=== PATIENT | female | born 1935 | race Caucasian/White ===

== ENCOUNTER 2016-10-29 20:42 | Observation (INO) | payer OTHER ==
--- NOTE | 2016-10-29 21:19 | PDOC ---
History of Present Illness - General History Source: Patient Exam Limitations: No Limitations <Ca Sewell - Last Filed: 10/29/16 23:25> <Ishmael Naidu - Last Filed: 10/30/16 16:12> - General Chief Complaint: Nausea/Vomiting Stated Complaint: FAINTING Time Seen by Provider: 10/29/16 21:18 - History of Present Illness Initial Comments: The patient is an 81 yo F with a past medical history significant for HTN and DM who presents with nausea, vomiting and syncope at approximately 8pm tonight. The patient states that a few hours ago she was feeling fine, then felt nauseus was vomiting and then fainted. She notes that her symptoms were sudden onset and have since resolved. She syncopized for a few seconds and was seated at the time. There was no head trauma. As per patient's family, EMS noted a decreased BP. The patient states she was eating and drinking normally today. The patient states the vomiting began at 8 pm. The patient states her vomit was brown in color without any blood and was not black appearing. The patient denies chest pain, sob, and palpitations. The patient denies fevers, chills and cough. She denies blurry vision vision changes, numbness/tingling/ weakness. She denies diarrhea and abdominal pain. The patients family notes the patient vomited and syncopized 1 year ago and was [place] the city but had a negative workup and was discharged. No new medications. (Ca Sewell) Past History <Ca Sewell - Last Filed: 10/29/16 23:25> - Past Medical History Diabetes: Yes (diet controlled) HTN: Yes Hypercholesterolemia: Yes Thyroid Disease: Yes (hypothyroid) - Immunization History Immunization Up to Date: Yes - Psycho/Social/Smoking Cessation Hx Anxiety: No Suicidal Ideation: No Smoking History: Never smoked Have you smoked in the past 12 months: No Information on smoking cessation initiated: No Hx Alcohol Use: No Drug/Substance Use Hx: No Substance Use Type: None <Beka Naiduan - Last Filed: 10/30/16 16:12> - Past Medical History Allergies/Adverse Reactions: Allergies Allergy/AdvReac Type Severity Reaction Status Date / Time No Known Allergies Allergy Verified 10/29/16 21:13 Home Medications: Ambulatory Orders Levothyroxine [Synthroid -] 88 mcg PO DAILY 10/30/16 Metformin HCl [Glucophage -] 500 mg PO DAILY 10/30/16 Pravastatin Sodium 20 mg PO HS 10/30/16 Ramipril 5 mg PO DAILY 10/30/16 Review of Systems - Review of Systems Able to Perform ROS?: Yes <Ca Sewell - Last Filed: 10/29/16 23:25> <Ishmael Naidu - Last Filed: 10/30/16 16:12> - Review of Systems Comments:: Constitutional - Pt denies Fever, Chills, weakness, HEENT: denies vision changes, sore throat Respiratory: Denies cough, sob, hemoptysis Cardiac: denies chest pain, palpitations, light headedness, leg swelling Abd/GI: +nausea, vomiting. denies abd pain, blood per rectum, melena, diarrhea : denies dysuria, frequency, discharge Musculskelatal - denies back pain, joint swelling skin - denies bruising, erythema, rash neurological: +syncope. denies headache, numbness, focal weakness, tingling, ataxia, weakness hematologic: denies anemia, easy bruising, easy bleeding (Ca Sewell) *Physical Exam <Ca Sewell - Last Filed: 10/29/16 23:25> <Ishmael Naidu - Last Filed: 10/30/16 16:12> - Vital Signs Last Vital Signs Temp Pulse Resp BP Pulse Ox 97.5 F L 77 18 161/80 97 10/30/16 12:00 10/30/16 14:34 10/30/16 14:34 10/30/16 14:34 10/30/16 14:34 - Physical Exam Comments: GENERAL: The patient is awake, alert, and fully oriented, Nontoxic - in no acute distress. HEAD: Normocephalic, atraumatic. EYES: extraocular movements intact, sclera anicteric, conjunctiva clear. ENT: Normal voice, Moist mucous membranes. NECK: Normal range of motion, supple without lymphadenopathy, JVD, or masses. LUNGS: Breath sounds equal, clear to auscultation bilaterally. No wheezes, no crackles, no rales. HEART: Regular rate and rhythm, normal S1 and S2 without murmur, rub or gallop. ABDOMEN: Soft, nontender, normoactive bowel sounds. No guarding, no rebound. No masses. EXTREMITIES: Normal range of motion, no edema. No clubbing or cyanosis. No cords, erythema, or tenderness. NEUROLOGICAL: No facial assymetry, Normal speech, normal gait. PSYCH: Normal mood, normal affect. SKIN: Warm, Dry, normal turgor, no rashes or lesions noted. (Ca Sewell) Heart Score/ECG Review <Ca Sewell - Last Filed: 10/29/16 23:25> <Ishmael Naidu - Last Filed: 10/30/16 16:12> - ECG Impressions Comment:: 10/30/16 01:51 Twelve-lead EKG was performed and reviewed by me. There is normal sinus rhythm with a normal rate. Rate of 68 diffuse T wave flattening (Ishmael Naidu) ED Treatment Course - LABORATORY CBC & Chemistry Diagram: 10/29/16 22:25 <Ca Sewell - Last Filed: 10/29/16 23:25> - LABORATORY CBC & Chemistry Diagram: 10/29/16 23:44 10/29/16 23:44 <Ishmael Naidu - Last Filed: 10/30/16 16:12> - ADDITIONAL ORDERS Additional order review: 10/29/16 23:44 RBC 4.49 MCV 84.2 MCHC 33.8 RDW 15.3 MPV 9.9 Neutrophils % 87.1 H Lymphocytes % 8.6 Monocytes % 3.8 Eosinophils % 0.1 Basophils % 0.4 - RADIOLOGY Radiology Studies Ordered: Category Date Time Status CHEST X-RAY PORTABLE* [RAD] Stat Radiology 10/29/16 22:06 Completed - Medications Given in the ED: ED Medications Discontinued Medications Generic Name Dose Route Start Last Admin Trade Name Freq PRN Reason Stop Dose Admin Sodium Chloride 500 mls @ 500 mls/hr 10/29/16 22:26 10/29/16 22:31 Normal Saline - IV 10/29/16 23:25 500 mls/hr ASDIR STA Administration Medical Decision Making <Ca Sewell - Last Filed: 10/29/16 23:25> <Ishmael Naidu - Last Filed: 10/30/16 16:12> - Medical Decision Making 10/29/16 21:54 81y F hx of DM, HTN, HL, thyroid disease presents with syncope. Pt states she started having 8pm, sh estarted feeling very nauseus, eventually she was lightheaded and syncopized for several seconds. Event was witnessed, no tonic/ clonic activity nor postictal period. Pt denies palpitations, chets pain, shortness of breath, vision changes, numbness/tingling/weakness, diarrhea, dysurai, fever/chills, cough. pt staes she is curretnly feeling fine and dnies nay complaints. per family, EMS noted her BP was very low. pt notes this occurred last year, she was admitted to another hospital last year and worked up an dwas negative. no known cardiac history pt on spice fumigator currently will r/o acs, anemia, metabolic dernagement if neg, will likely need observation to r/o arrythemia 10/30/16 01:50 pts blood work reviewed noted for leukocytosis to 20 no finectious complaints cxr clear pt is awaiting UA will observe in tele for arrythmia case dw dr. grey agreed with tele observation under dr. puckett service Case discussed in detail with admitting physician including history, physical exam and ancillary studies. Admitting physician has assumed care for the patient, will follow all pending diagnostics and will complete the evaluation and treatment. (Ishmael Naidu) *DC/Admit/Observation/Transfer <Ca Sewell - Last Filed: 10/29/16 23:25> - Discharge Dispostion Admit: Yes <Ishmael Naidu - Last Filed: 10/30/16 16:12> Diagnosis at time of Disposition: Syncope Qualifiers: Syncope type: unspecified Qualified Code(s): R55 - Syncope and collapse Leukocytosis Qualifiers: Leukocytosis type: unspecified Qualified Code(s): D72.829 - Elevated white blood cell count, unspecified - Referrals - Attestations Scribe Attestion: Documentation prepared by Ca Sewell, acting as medical engineer for Ishmael Naidu MD, /DO. (Ca Sewell)
[2016-10-29] MEDS ORDERED: SODIUM CHLORIDE 500 ML IV STA (22:26)
[2016-10-29 23:49] LABS: BASOPHIL 0.4 % (0-2.0); EOSINOPHIL 0.1 % (0-4.5); MCH 28.4 pg (25.7-33.7); MCHC 33.8 g/dl (32.0-36.0); MEAN CELL VOLUME 84.2 fl (80-96); MEAN PLT VOLUME 9.9 fl (7.5-11.1); NEUTROPHILS 87.1 % (42.8-82.8); PLATELET COUNT 182 K/MM3 (134-434); RDW 15.3 % (11.6-15.6)
[2016-10-30 01:00] LABS: ALBUMIN 3.5 g/dl (3.4-5.0); ANION GAP 9 (8-16); CALCIUM 8.9 mg/dL (8.5-10.1); CO2 27 mmol/L (21-32); GLUCOSE,RANDOM 158 mg/dL (74-106)
[2016-10-30 01:06] LABS: ALK PHOS 70 U/L (45-117); BILIRUBIN,TOTAL 0.6 mg/dL (0.2-1.0); CPK 50 IU/L (26-192); SGOT/AST 17 U/L (15-37); SGPT/ALT 13 U/L (12-78); TOT PROT 6.9 g/dl (6.4-8.2); TROPONIN I < 0.02 ng/ml (0.00-0.05)
--- NOTE | 2016-10-30 03:58 | HP ---
CHIEF COMPLAINT: syncope PCP: [place] HISTORY OF PRESENT ILLNESS: 81 yr old woman with HTN, NIDDMII, hypothyroidism BIBEMS due to one episode of sudden syncope post-emesis this afternoon around 8pm. she recalls feeling full after dinner and going to lay down. she felt nauseous and vomiting non-bloody non-bilious food over herself and the side of the bed. she then fainted and remembers waking up in the hospital. says she was feeling well all day, spent the day in the house watching TV. Dinner consisted of rice and meat. she lives with the daughter who had the same dinner without symptoms. denies chest pain, palpitations, headache, lightheadedness, abdominal pain, dysuria, fever, diarrhea, sick contacts, cough, vision changes, sob. As per ED record, EMS noted a decreased BP on site, family notes previous episode one year ago, work-up for similar syncope episode was negative for CVA/ AR. ER course was notable for: (1) EKG with diffuse t-wave flattening (2) cxy (3) Recent Travel: none PAST MEDICAL HISTORY: HTN NIDDM II hypothyroidism PAST SURGICAL HISTORY: denies Social History: Smoking: denies Alcohol: denies Drugs: denies Family History: Allergies No Known Allergies Allergy (Verified 10/29/16 21:13) HOME MEDICATIONS: Home Medications Medication Instructions Recorded Levothyroxine [Synthroid -] 25 mcg PO DAILY 10/29/16 REVIEW OF SYSTEMS CONSTITUTIONAL: Absent: fever, chills, diaphoresis, generalized weakness, malaise, loss of appetite, weight change HEENT: Absent: rhinorrhea, nasal congestion, throat pain, throat swelling, difficulty swallowing, mouth swelling, ear pain, eye pain, visual changes CARDIOVASCULAR: Absent: chest pain, syncope, palpitations, irregular heart rate, lightheadedness , peripheral edema RESPIRATORY: Absent: cough, shortness of breath, dyspnea with exertion, orthopnea, wheezing, stridor, hemoptysis GASTROINTESTINAL: Present: vomiting Absent: abdominal pain, abdominal distension, nausea, diarrhea, constipation, melena, hematochezia GENITOURINARY: Absent: dysuria, frequency, urgency, hesitancy, hematuria, flank pain, genital pain MUSCULOSKELETAL: Absent: myalgia, arthralgia, joint swelling, back pain, neck pain SKIN: Absent: rash, itching, pallor HEMATOLOGIC/IMMUNOLOGIC: Absent: easy bleeding, easy bruising, lymphadenopathy, frequent infections ENDOCRINE: Absent: unexplained weight gain, unexplained weight loss, heat intolerance, cold intolerance NEUROLOGIC: Absent: headache, focal weakness or paresthesias, dizziness, unsteady gait, seizure, mental status changes, bladder or bowel incontinence PSYCHIATRIC: Absent: anxiety, depression, suicidal or homicidal ideation, hallucinations. PHYSICAL EXAMINATION GENERAL: Awake, alert, and oriented to person/place/date,hospital(didn't know the name but knew this was a hospital) in no acute distress. HEAD: Normal with no signs of trauma. EYES: Pupils equal, round and reactive to light, extraocular movements intact, sclera anicteric, conjunctiva clear. No lid lag. EARS, NOSE, THROAT: Ears normal, nares patent, oropharynx clear without exudates. Moist mucous membranes. NECK: Normal range of motion, supple without lymphadenopathy, JVD, or masses. LUNGS: Breath sounds equal, clear to auscultation bilaterally. No wheezes, and no crackles. No accessory muscle use. HEART: Regular rate and rhythm, normal S1 and S2 without murmur, rub or gallop. ABDOMEN: Soft, nontender, not distended, normoactive bowel sounds, no guarding, no rebound, no masses. No hepatomegaly or splenomegaly. MUSCULOSKELETAL: Normal range of motion at all joints. No bony deformities or tenderness. No CVA tenderness. UPPER EXTREMITIES: 2+ radial pulses, warm, well-perfused. No cyanosis. No clubbing. No peripheral edema. LOWER EXTREMITIES: 2+ DP pulses, warm, well-perfused. No calf tenderness. No peripheral edema. NEUROLOGICAL: Cranial nerves II-XII intact. Normal speech. 5/5 strength on bicep/tricep,shoulder extension/flexion. 5/5 handgrip. 5/5 hip extension, knee flexion and extension, dorsi/plantar flexion PSYCHIATRIC: Cooperative. Good eye contact. Appropriate mood and affect. SKIN: Warm, dry, normal turgor, no rashes or lesions noted, normal capillary refill. ASSESSMENT/PLAN: 84 yr old woman with HTN, NIDDM II presents with 1 episode of syncope and emesis placed on observation for syncope work-up - medications will need to be verified with family in the morning, she was unable to recall the names or pharmacy. #Syncope - unclear etiology, likely vaso-vagal - with no focal neurological deficits/complaints low suspicion for CVA, low suspicion for seizure - tele monitoring to r/o arrhythmia, repeat EKG, repeat troponin - echo to r/o cardiac cause, orthostatics - with leucocytosis, possible infectious etiology, however pt is afebrile, cxy is neg for acute lung pathology, pending u/a to r/o UTI #Hypothyroidism - TSH is 20, likely pt is non-compliant with meds, T4 and T3 pending #HTN - currently elevate, however due to reports of hypotension earlier, defer BP meds until verified - IVF #NIDDM II - verify home medications - BGM ACHS Diet: low sodium Visit type - Emergency Visit Emergency Visit: Yes ED Registration Date: 10/30/16 Care time: The patient presented to the Emergency Department on the above date and was hospitalized for further evaluation of their emergent condition. - New Patient This patient is new to me today: Yes Date on this admission: 10/30/16 - Critical Care Critical Care patient: No
[2016-10-30 04:47] LABS: CPK 50 IU/L (26-192); TROPONIN I < 0.02 ng/ml (0.00-0.05)
[2016-10-30 05:36] LABS: URINE APPEARANCE CLOUDY; URINE BILIRUBIN NEGATIVE (NEGATIVE); URINE BLOOD 1+ (NEGATIVE); URINE COLOR YELLOW; URINE GLUCOSE (UA) NEGATIVE (NEGATIVE); URINE KETONE NEGATIVE (NEGATIVE); URINE NITRITE NEGATIVE (NEGATIVE); URINE PROTEIN NEGATIVE (NEGATIVE); URINE UROBILINOGEN NEGATIVE mg/dL (0.2-1.0)
[2016-10-30 05:45] LABS: URINE LEUK ESTERASE 3+ (NEGATIVE)
[2016-10-30 05:48] LABS: URINE BACTERIA MODERATE /hpf (NONE SEEN); URINE HYALINE CAST 9 /lpf; URINE MUCUS RARE; URINE RBC 11 /hpf (0-3); URINE WBC 16 /hpf (3-5)
--- NOTE | 2016-10-30 05:59 | PN ---
Teaching Attending Note Name of Resident: Mau Short ATTENDING PHYSICIAN STATEMENT I saw and evaluated the patient. Chart, data, and imaging reviewed. I reviewed the resident's note and discussed the case with the resident. I agree with the resident's findings and plan as documented. SUBJECTIVE: 81 yo F with hx of DM, HTN, DLP, hypothyroidism presented to ER after she lost consciousness on 10/29 at around 8pm when patient was laying down. She had associated nausea and lightheadedness. Thus episode was witnessed by daughter. It last for several seconds. No post ictal period. No reported bowel/bladder incontinence. Denied any chest pain, palpitations, or shortness of breath. Glucose was normal in ER. OBJECTIVE: Last Vital Signs Temp Pulse Resp BP Pulse Ox 97.6 F 73 18 121/71 96 10/29/16 21:14 10/29/16 21:14 10/29/16 21:14 10/29/16 21:14 10/29/16 21:14 General NAD, follows commands, answers questions HEENT- atraumatic, normocephalic Neck supple, no masses cv-s1+s2+ RRR Chest- CTA b/l Abdomen- soft, nt, no masses appreciated Neuro- CN 3-12 grossly intact, no motor deficits in extremities appreciated Abnormal Lab Results 10/29/16 10/29/16 10/30/16 23:44 23:44 04:09 WBC 20.0 H Neutrophils % 87.1 H Random Glucose 158 H TSH 20.80 H Urine Blood Ur Leukocyte Esterase 10/30/16 05:20 WBC Neutrophils % Random Glucose TSH Urine Blood 1+ H Ur Leukocyte Esterase 3+ H CXR no consolidations seen EKG- Normal sinus rhythm ASSESSMENT AND PLAN: Witnessed syncope with no neurological deficits noted on physical exam. EKG wnl. Should r/o Aortic stenosis. Unlikely seizure disorder. Unclear cause of leukocytosis. -admit to tele observation -repeat EKG -Head CT -transthoracic echo -check TSH -repeat CBC -SCDs for DVT ppx -regular diet
--- NOTE | 2016-10-30 08:39 | PN ---
Physical Exam: SUBJECTIVE: Patient seen and examined She has no complaints She denies all review of systems questions She denies loss of consciousness OBJECTIVE: GEN: Awake, alert CVS: RRR PULM: CTAB ABD: soft, NT/ND, NABS EXTREM: warm ,well perfused Laboratory Results - last 24 hr 10/30/16 10/30/16 10/30/16 04:09 04:09 05:20 Creatine Kinase 50 Troponin I < 0.02 TSH 20.80 H Urine Color Yellow Urine Appearance Cloudy Urine pH 5.0 Urine Protein Negative Urine Glucose (UA) Negative Urine Ketones Negative Urine Blood 1+ H Urine Nitrite Negative Urine Bilirubin Negative Urine Urobilinogen Negative Ur Leukocyte Esterase 3+ H Urine RBC 11 Urine WBC 16 Ur Epithelial Cells Rare Urine Bacteria Moderate Hyaline Casts 9 Urine Mucus Rare Active Medications Generic Name Dose Route Start Last Admin Trade Name Freq PRN Reason Stop Dose Admin Enoxaparin Sodium 40 mg 10/30/16 10:00 Lovenox - SQ DAILY LAURA Ceftriaxone Sodium 1 gm/ 50 mls @ 100 mls/hr 10/30/16 10:00 Dextrose IVPB DAILY LAURA Levothyroxine Sodium 25 mcg 10/30/16 07:00 Synthroid - PO AM LAURA ASSESSMENT/PLAN: The patient is an 81 year old female with a significant past medical history of HTN, HLD, DM and hypothyroidism who was placed on observation overnight after a witnessed loss of consciousness. #CVS Loss of consciousness Did not have features of seizure or hypoglycemia Seems syncopal Will monitor on Tele TTE Cardiology consult #ID Leukocytosis with left shift UA with evidence of UTI She is asymptomatic but she also answers no to all ROS questions No evidence of pyelonephritis Will send UCx, BCx Will begin Ceftriaxone daily #ENDOCRINE TSH high Free T4 and T3 pending Continue Synthroid at her home dose She claims this is 25mcg daily She does not know her pharmacy or have girish pill bottle We will need to verify the dose with her daughter #FEN D51/2NS at 125ml/hr Low Na diet #PROPHYLAXIS Lovenox Eating PT consult She reports taking her Synthroid daily but I am suspicious that she has been non -compliant Visit type - Emergency Visit Emergency Visit: Yes ED Registration Date: 10/30/16 Care time: The patient presented to the Emergency Department on the above date and was hospitalized for further evaluation of their emergent condition. - New Patient This patient is new to me today: Yes Date on this admission: 10/30/16 - Critical Care Critical Care patient: No
[2016-10-30] MEDS ORDERED: DEXTROSE 5%-0.45% SALINE 1,000 ML IV SCH (09:00)
[2016-10-30] MEDS ORDERED: CEFTRIAXONE 1 GM in DEXTROSE 5%-WATER - 50 ML IVPB SCH (10:00)
[2016-10-30] MEDS ORDERED: HEPARIN NA (PORCINE) 5,000 UNITS/ML 1ML VIAL SQ SCH (10:00)
[2016-10-30] MEDS: LEVOTHYROXINE NA 25 MCG TABLET (FP) PO SCH (10:05)
[2016-10-30] MEDS ORDERED: CEFTRIAXONE 50 ML ONE (10:14)
[2016-10-30] MEDS ORDERED: ENOXAPARIN NA (PORCINE) 40 MG/0.4 ML DISP.SYRIN SQ ONE (10:14)
[2016-10-30] MEDS: ENOXAPARIN NA (PORCINE) 40 MG/0.4 ML DISP.SYRIN SQ SCH (10:18)
[2016-10-30 12:20] VITALS: BMI 21.9
--- NOTE | 2016-10-30 12:50 | EKG ---
Test Reason : Blood Pressure : / mmHG Vent. Rate : 068 BPM Atrial Rate : 068 BPM P-R Int : 192 ms QRS Dur : 068 ms QT Int : 400 ms P-R-T Axes : 063 055 062 degrees QTc Int : 425 ms NORMAL SINUS RHYTHM NONSPECIFIC T WAVE ABNORMALITY ABNORMAL ECG NO PREVIOUS ECGS AVAILABLE Confirmed by APOLLO NIELSON MD ([id number]) on 10/30/2016 12:50:26 PM Referred By: Confirmed By:APOLLO NIELSON MD
--- NOTE | 2016-10-30 12:53 | EKG ---
Test Reason : Blood Pressure : / mmHG Vent. Rate : 066 BPM Atrial Rate : 066 BPM P-R Int : 212 ms QRS Dur : 064 ms QT Int : 412 ms P-R-T Axes : 072 039 014 degrees QTc Int : 431 ms SINUS RHYTHM WITH 1ST DEGREE A-V BLOCK OTHERWISE NORMAL ECG WHEN COMPARED WITH ECG OF 29-OCT-2016 23:31, NONSPECIFIC T WAVE ABNORMALITY NO LONGER EVIDENT IN LATERAL LEADS Confirmed by NISREEN ALVARADO, APOLLO ([id number]) on 10/30/2016 12:52:45 PM Referred By: Confirmed By:APOLLO NIELSON MD
[2016-10-31] MEDS: LEVOTHYROXINE NA 25 MCG TABLET (FP) PO SCH (06:19)
[2016-10-31 07:55] LABS: BASOPHIL 1.2 % (0-2.0); EOSINOPHIL 4.5 % (0-4.5); MCH 28.4 pg (25.7-33.7); MCHC 33.6 g/dl (32.0-36.0); MEAN CELL VOLUME 84.3 fl (80-96); MEAN PLT VOLUME 10.7 fl (7.5-11.1); NEUTROPHILS 60.5 % (42.8-82.8); PLATELET COUNT 179 K/MM3 (134-434); RDW 15.5 % (11.6-15.6); WHITE BLOOD COUNT 12.5 K/mm3 (4.0-10.0)
[2016-10-31 08:46] LABS: ALBUMIN 3.5 g/dl (3.4-5.0); ANION GAP 9 (8-16); CALCIUM 8.6 mg/dL (8.5-10.1); CO2 27 mmol/L (21-32); GLUCOSE,RANDOM 110 mg/dL (74-106); MAGNESIUM 1.8 mg/dL (1.8-2.4)
[2016-10-31 08:49] LABS: ALK PHOS 75 U/L (45-117); BILIRUBIN,TOTAL 0.6 mg/dL (0.2-1.0); CREATININE 0.9 mg/dL (0.55-1.02); PHOSPHOROUS 2.6 mg/dL (2.5-4.9); SGOT/AST 17 U/L (15-37); SGPT/ALT 14 U/L (12-78); TOT PROT 7.3 g/dl (6.4-8.2)
[2016-10-31] MEDS ORDERED: CEFTRIAXONE 50 ML IVPB SCH (10:00)
[2016-10-31] MEDS ORDERED: PT OWN MED DRAWER 7, Y5N ONE (11:03)
[2016-10-31] MEDS: ENOXAPARIN NA (PORCINE) 40 MG/0.4 ML DISP.SYRIN SQ SCH (11:05)
--- NOTE | 2016-10-31 12:53 | PN ---
Teaching Attending Note Name of Resident: Angela Gallagher ATTENDING PHYSICIAN STATEMENT I saw and evaluated the patient. I reviewed the resident's note and discussed the case with the resident. I agree with the resident's findings and plan as documented. SUBJECTIVE: Patient has no complaints. OBJECTIVE: Vital Signs Period Temp Pulse Resp BP Sys/Rodriguez Pulse Ox Last 24 Hr 98 F-98.6 F 72-79 18-20 139-168/75-86 97-98 HEART: S1S2, RRR LUNGS: Clear ABDOMEN: Soft, non-tender, non-distended, normal BS EXTREMITIES: No edema Current Medications Generic Name Dose Route Start Last Admin Trade Name Freq PRN Reason Stop Dose Admin Enoxaparin Sodium 40 mg 10/30/16 10:00 10/31/16 11:05 Lovenox - SQ 40 mg DAILY LAURA Administration Ceftriaxone Sodium 50 mls @ 100 mls/hr 10/31/16 10:00 10/31/16 11:07 Rocephin 1gm Ivpb (Pre-Docked) IVPB 100 mls/hr DAILY LAURA Administration Levothyroxine Sodium 25 mcg 10/30/16 07:00 10/31/16 06:19 Synthroid - PO Not Given AM LAURA ASSESSMENT AND PLAN: This is an 81 year old woman with a history of HTN, hyperlipidemia, type 2 DM, hypothyroidism who presented to the ER after passing out. 1. Syncope - Likely vasovagal - No arrhythmias on telemetry - Troponin negative - Echo pending - if unremarkable, patient can be discharged 2. Asymptomatic bacteriuria - Discontinue antibiotics 3. Hypothyroidism - Continue Synthroid - TSH is high, FT4 is normal, FT3 is low - Outpatient follow up 4. HTN - Continue Altace 5. Hyperlipidemia - Continue Pravachol 6. Type 2 diabetes mellitus - Continue Metformin
[2016-10-31 15:04] VITALS: BP 135/71; PULSE 68; TEMP 98.2
--- NOTE | 2016-10-31 15:35 | DS ---
Physical Exam: SUBJECTIVE: Patient seen and examined at bedside. Stated that she was feeling much better. Denied dizziness, weakness, or any new symptoms. OBJECTIVE: Vital Signs Period Temp Pulse Resp BP Sys/Rodriguez Pulse Ox Last 24 Hr 98 F-98.6 F 68-79 18-20 135-168/71-86 93-98 PHYSICAL EXAM GENERAL: The patient is awake, alert, and fully oriented, in no acute distress. HEAD: Normal with no signs of trauma. EYES: PERRL, extraocular movements intact, sclera anicteric, conjunctiva clear. NECK: Trachea midline, full range of motion, supple. LUNGS: Breath sounds equal, clear to auscultation bilaterally, no wheezes, no crackles, no accessory muscle use. HEART: Regular rate and rhythm, S1, S2 without murmur, rub or gallop. ABDOMEN: Soft, nontender, nondistended, normoactive bowel sounds, no guarding, no rebound, no hepatosplenomegaly, no masses. EXTREMITIES: 2+ posterior tibial pulses, warm, well-perfused, no edema. NEUROLOGICAL: Cranial nerves II through XII grossly intact. LABS 10/29/16 10/29/16 10/30/16 22:25 23:44 04:09 RBC 4.49 Hgb 12.7 Hct 37.8 MCV 84.2 MCH 28.4 MCHC 33.8 RDW 15.3 Plt Count 182 MPV 9.9 Neutrophils % Lymphocytes % 8.6 Monocytes % 3.8 Eosinophils % 0.1 Basophils % 0.4 Sodium Potassium Anion Gap BUN Creat Clearance w eGFR Random Glucose Calcium ALT Alkaline Phosphatase Creatine Kinase 50 Troponin I 10/31/16 05:48 RBC 4.14 Hgb 11.7 Hct 34.9 MCV 84.3 MCH 28.4 MCHC 33.6 RDW 15.5 Plt Count 179 MPV 10.7 Neutrophils % 60.5 D Lymphocytes % 25.1 D Monocytes % 8.7 D Eosinophils % 4.5 D Basophils % 1.2 Sodium Potassium Anion Gap BUN Creat Clearance w eGFR Random Glucose Calcium ALT Alkaline Phosphatase Creatine Kinase Troponin I 10/30/16 05:20 Urine Color Yellow Urine Appearance Cloudy Urine pH 5.0 Ur Specific [place] 1.020 Urine Protein Negative Urine Glucose (UA) Negative Urine Ketones Negative Urine Blood 1+ H Urine Nitrite Negative Urine Bilirubin Negative Urine Urobilinogen Negative Ur Leukocyte Esterase 3+ H Urine RBC 11 Urine WBC 16 Ur Epithelial Cells Rare Troponins negative x 2 Microbiology 10/30/16 09:20 Blood - Peripheral Venous Blood Culture - Preliminary NO GROWTH OBTAINED AFTER 24 HOURS, INCUBATION TO CONTINUE FOR 4 DAYS. 10/30/16 09:20 Blood - Peripheral Venous Blood Culture - Preliminary NO GROWTH OBTAINED AFTER 24 HOURS, INCUBATION TO CONTINUE FOR 4 DAYS. Imaging 10/29/16: CXR: within normal limits 10/29/16: EKG: normal sinus rhythm, nonspecific T wave abnormality 10/30/16: EKG: sinus rhythm with 1st degree AV block, nonspecific T wave abnormality no longer seen 10/31/16: ECHO: LV normal in size, no regional wall motion abnormalities, mild mitral regurgitation, mild tricuspid regurgitation, no pericardial effusion HOSPITAL COURSE: Date of Admission:10/30/16 Date of Discharge: 10/31/16 Admit diagnosis: syncope Pre-admission course 81 yr old woman with HTN, NIDDMII, hypothyroidism BIBEMS due to one episode of sudden syncope post-emesis this afternoon around 8pm. she recalls feeling full after dinner and going to lay down. she felt nauseous and vomiting non-bloody non-bilious food over herself and the side of the bed. she then fainted and remembers waking up in the hospital. says she was feeling well all day, spent the day in the house watching TV. Dinner consisted of rice and meat. she lives with the daughter who had the same dinner without symptoms. denies chest pain, palpitations, headache, lightheadedness, abdominal pain, dysuria, fever, diarrhea, sick contacts, cough, vision changes, sob. As per ED record, EMS noted a decreased BP on site, family notes previous episode one year ago, work-up for similar syncope episode was negative for CVA/ NV. ER course was notable for: (1) EKG with diffuse t-wave flattening Hospital course Pt's syncope was worked up to r/o cardiac cause. Pt was managed on tele monitoring w/o any significant events. Repeat EKG revealed sinus rhythm with 1st degree AV block, however this was most likely not cause of pt's syncope. Troponins were negative x2. Pt's syncope was most likely vasovagal. Upon d/c, pt did not endorse any palpitations, dizziness, shortness of breath, or any related symptoms. Pt also had leukocytosis on admission, however this was most likely reactive. Pt also had asymptomatic pyuria that was tx with a two day course of rocephin. Blood cx were negative. She denied suprapubic tenderness or dysuria on admission , and upon d/c. Minutes to complete discharge: 32 Discharge Summary Reason For Visit: SYNCOPE, LEUKOCYTOSIS Current Active Problems Leukocytosis (Acute) Syncope (Acute) Condition: Stable - Instructions Diet, Activity, Other Instructions: You were recently in the hospital because you passed out. An ECHO (ultrasound of your heart) was done and showed no abnormalities. While you were admitted, you were also found to have an infection in your urinary tract. You may resume activity as tolerated. You may continue your home medications. We would like you to follow up with your primary care doctor, and a practice consultant , Dr. Conrad in 1 week. If you develop shortness of breath, chest pain, or any new symptoms, please go to the hospital. We hope you feel better soon. Referrals: Osbaldo Finley MD [Non Staff, Medical] - Megan Perez MD [Staff Physician] - Disposition: HOME - Home Medications Comprehensive Discharge Medication List: Ambulatory Orders Levothyroxine [Synthroid -] 88 mcg PO DAILY 10/30/16 Metformin HCl [Glucophage -] 500 mg PO DAILY 10/30/16 Pravastatin Sodium 20 mg PO HS 10/30/16 Ramipril 5 mg PO DAILY 10/30/16 This patient is new to me today: Yes Date on this admission: 10/31/16 Emergency Visit: No Critical Care patient: No - Discharge Referral Referred to [facility] Med [facility].: No
== END 2016-10-31 21:44 | disposition home or self-care (01) ==
LOC: JER 20:42 → JERBED 10-30 01:49 → J4W 10-30 18:13
PROVIDERS: ADMIT Internal Medicine; ATTEND Internal Medicine
PROC: 3E0337Z Introduction of Electrolytic and Water Balance Substance into Peripheral Vein, Percutaneous Approach (ICD-10-PCS; principal; 2016-10-30)
PROC: 3E033GC Introduction of Other Therapeutic Substance into Peripheral Vein, Percutaneous Approach (ICD-10-PCS; 2016-10-30)
DX: R55 Syncope and collapse (principal); D72.829 Elevated white blood cell count, unspecified; R82.71 Bacteriuria; I10 Essential (primary) hypertension; E11.9 Type 2 diabetes mellitus without complications; E78.5 Hyperlipidemia, unspecified; E03.9 Hypothyroidism, unspecified; Z79.84 Long term (current) use of oral hypoglycemic drugs
CPT/HCPCS: 36415; 71010-TC; 80053; 81003; 81015; 83735; 84100; 84439; 84443; 84481; 84484; 85025; 87040; 87086; 93005; 93010; 93306-TC; 97116-GP; 97161-GP; 99285-25; G0378